=== PATIENT | female | born 1930 | race Caucasian/White ===

== ENCOUNTER 2018-12-25 17:37 | Inpatient (IN) | payer MEDICARE ==
[~2018-12-25] VITALS: Ht 165.1 cm; Wt 85.9 kg
--- NOTE | 2018-12-25 18:08 | PHYS DOC ---
Adult General Chief Complaint Chief Complaint: ABNORMAL LABS HPI HPI Patient is a 88-year-old female presents with no complaints. She was sent in by her primary care team because of abnormal labs to include a low bicarbonate and an elevated BUN compared with her usual baseline. She denies any chest pain, difficulty breathing, fever, nausea, vomiting, or diarrhea. No change in her strength or energy levels. The testing was performed prior to an upcoming procedure.[] Review of Systems Review of Systems Constitutional: Denies fever or chills [] Eyes: Denies change in visual acuity, redness, or eye pain [] HENT: Denies nasal congestion or sore throat [] Respiratory: Denies cough or shortness of breath [] Cardiovascular: No chest pain or palpitations[] GI: Denies abdominal pain, nausea, vomiting, bloody stools or diarrhea [] : Denies dysuria or hematuria [] Musculoskeletal: Denies back pain or joint pain [] Integument: Denies rash or skin lesions [] Neurologic: Denies headache, focal weakness or sensory changes [] Endocrine: Denies polyuria or polydipsia [] All other systems were reviewed and found to be within normal limits, except as documented in this note. Allergies Allergies Allergies Coded Allergies Type Severity Reaction Last Updated Verified No Known Drug Allergies 12/25/18 No Physical Exam Physical Exam Constitutional: Well developed, well nourished, no acute distress, non-toxic appearance. [] HENT: Normocephalic, atraumatic, bilateral external ears normal, oropharynx moist, no oral exudates, nose normal. [] Eyes: PERRLA, EOMI, conjunctiva normal, no discharge. [] Neck: Normal range of motion, no tenderness, supple, no stridor. [] Cardiovascular:Heart rate regular rhythm, no murmur [] Lungs & Thorax: Bilateral breath sounds clear to auscultation [] Abdomen: Bowel sounds normal, soft, no tenderness, no masses, no pulsatile masses. [] Skin: Warm, dry, no erythema, no rash. [] Back: No tenderness, no CVA tenderness. [] Extremities: No tenderness, no cyanosis, no clubbing, ROM intact, no edema. [] Neurologic: Alert and oriented X 3, normal motor function, normal sensory function, no focal deficits noted. [] Psychologic: Affect normal, judgement normal, mood normal. [] EKG EKG [] Radiology/Procedures Radiology/Procedures [] Course & Med Decision Making Course & Med Decision Making Pertinent Labs and Imaging studies reviewed. (See chart for details) [] Dragon Disclaimer Dragon Disclaimer This electronic medical record was generated, in whole or in part, using a voice recognition dictation system. Departure Departure: Disposition: 01 HOME/RESIDENCE PRIOR TO ADM Condition: STABLE Referrals: CAROLINA PETE MD (PCP) MARIA TERESA GATICA DO Dec 25, 2018 18:08
[2018-12-25 18:42] LABS: BASO % 1 % (0-3); EOS # 0.2 x10^3/uL (0.0-0.7); EOS % 3 % (0-3); HEMATOCRIT 38.3 % (36.0-47.0); HEMOGLOBIN 12.7 g/dL (12.0-15.5); LYMPH # 1.7 x10^3/uL (1.0-4.8); LYMPH % 25 % (24-48); MEAN CORPUSCULAR HEMOGLOBIN 30 pg (25-35); MEAN CORPUSCULAR HGB CONC 33 g/dL (31-37); MEAN CORPUSCULAR VOLUME 91 fL (79-100); MONO # 0.7 x10^3/uL (0.0-1.1); MONO % 9 % (0-9); NEUT # 4.4 x10^3uL (1.8-7.7); NEUT % 63 % (31-73); PLATELET COUNT 257 x10^3/uL (140-400); RED CELL DISTRIBUTION WIDTH 14.4 % (11.5-14.5)
[2018-12-25 18:57] LABS: ALBUMIN 3.3 g/dL (3.4-5.0); ALBUMIN/GLOBULIN RATIO 0.8 (1.0-1.7); CALCIUM 8.7 mg/dL (8.5-10.1); CREATININE 2.4 mg/dL (0.6-1.0); GFR 19.1; MAGNESIUM 2.3 mg/dL (1.8-2.4); POTASSIUM 5.3 mmol/L (3.5-5.1); TOTAL BILIRUBIN 0.2 mg/dL (0.2-1.0); TOTAL PROTEIN 7.6 g/dL (6.4-8.2)
[2018-12-25 18:59] LABS: BILIRUBIN,URINE NEG (NEG); CLARITY,URINE CLOUDY; COLOR,URINE YELLOW; GLUCOSE,URINE NEG (NEG)
[2018-12-25 19:00] LABS: BACTERIA,URINE MOD /HPF (0-FEW); GRANULAR CASTS,URINE OCC /HPF; HYALINE CASTS, URINE OCC /HPF; NITRITE,URINE NEG (NEG); RBC,URINE TNTC /HPF (0-2); SQUAMOUS EPITHELIAL CELL,UR FEW /LPF; UROBILINOGEN,URINE 0.2 mg/dL (0.2 mg/dL); WBC,URINE TNTC /HPF (0-4)
[2018-12-25] MEDS ORDERED: cefTRIAXone SODIUM 1 GM VIAL ONE (19:06)
[2018-12-25] MEDS ORDERED: IV NORMAL SALINE 50ML 50 ML ONE (19:06)
[2018-12-25] MEDS ORDERED: IV NORMAL SALINE 500ML 1,000 ML IV ONE (19:15)
[2018-12-25] MEDS ORDERED: ONDANSETRON PF 4 MG/2 ML VIAL. IV PRN (19:15)
[2018-12-25] MEDS: ACETAMINOPHEN 325 MG TABLET PO PRN (21:28)
[2018-12-25 21:40] VITALS: BP 155/74
[2018-12-25] MEDS: IV NORMAL SALINE 1,000ML 1,000 ML IV SCH (22:45)
[2018-12-26] MEDS ORDERED: TRAM50TA PO (02:15)
[2018-12-26] MEDS ORDERED: LORA10TA3 PO (02:15)
[2018-12-26] MEDS ORDERED: ASCO500C PO (02:15)
[2018-12-26] MEDS ORDERED: MULT-650 PO (02:15)
[2018-12-26] MEDS ORDERED: LEVO88TA4 PO (02:15)
[2018-12-26] MEDS: ACETAMINOPHEN 325 MG TABLET PO PRN ×2 (02:21→09:34)
[2018-12-26] MEDS ORDERED: CALC400T5 PO (02:47)
[2018-12-26] MEDS ORDERED: LACT330L PO (02:47)
[2018-12-26] MEDS ORDERED: MENT7.6L2 PO (02:47)
[2018-12-26] MEDS ORDERED: POLY17PO5 PO (02:47)
[2018-12-26] MEDS ORDERED: DIPH28.33 TP (02:47)
[2018-12-26] MEDS: LEVOTHYROXINE 88 MCG TABLET PO SCH (06:06)
[2018-12-26 06:21] LABS: BASO % 0 % (0-3); EOS # 0.1 x10^3/uL (0.0-0.7); EOS % 2 % (0-3); HEMATOCRIT 36.1 % (36.0-47.0); HEMOGLOBIN 11.9 g/dL (12.0-15.5); LYMPH # 1.9 x10^3/uL (1.0-4.8); LYMPH % 28 % (24-48); MEAN CORPUSCULAR HEMOGLOBIN 30 pg (25-35); MEAN CORPUSCULAR HGB CONC 33 g/dL (31-37); MEAN CORPUSCULAR VOLUME 91 fL (79-100); MONO # 0.6 x10^3/uL (0.0-1.1); MONO % 8 % (0-9); NEUT # 4.2 x10^3uL (1.8-7.7); NEUT % 62 % (31-73); PLATELET COUNT 245 x10^3/uL (140-400); RED BLOOD COUNT 3.97 x10^6/uL (3.50-5.40); WHITE BLOOD COUNT 6.9 x10^3/uL (4.0-11.0)
[2018-12-26 06:24] VITALS: BP 123/67
[2018-12-26 06:26] LABS: CALCIUM 8.5 mg/dL (8.5-10.1); CREATININE 2.3 mg/dL (0.6-1.0); POTASSIUM 5.2 mmol/L (3.5-5.1)
[2018-12-26] MEDS ORDERED: LACTOSE REDUCED FOOD PO SCH (07:30)
[2018-12-26] MEDS ORDERED: CALCIUM CARBONATE 500 MG TAB.CHEW PO PRN (07:45)
[2018-12-26] MEDS ORDERED: diphenhydrAMINE/ZINC 2%/0.1% 28GM TUBE. TP PRN (07:45)
[2018-12-26] MEDS ORDERED: MENTHOL PO SCH (08:00)
[2018-12-26] MEDS: IV NORMAL SALINE 1,000ML 1,000 ML IV SCH ×2 (08:09→11:10)
[2018-12-26] MEDS: ASCORBIC ACID 500 MG TABLET PO SCH (08:11)
[2018-12-26] MEDS: MULTIVITAMIN with MINERAL TABLET. PO SCH (08:12)
[2018-12-26] MEDS: POLYETHYLENE GLYCOL 3350 17 GM PACKET. PO SCH (08:12)
[2018-12-26] MEDS: CETIRIZINE HCL 10 MG TABLET PO SCH (08:12)
[2018-12-26] MEDS: NYSTATIN TOPICAL POWDER 15GM BOTTLE. TP SCH ×2 (10:00→21:00)
[2018-12-26 10:28] VITALS: BP 131/69
[2018-12-26] MEDS ORDERED: IOHEXOL 240 MG/ML 50ML VIAL. ONE (10:55)
--- NOTE | 2018-12-26 11:08 | HP ---
ADMIT DATE: 12/25/2018 HISTORY OF PRESENT ILLNESS: The patient is an 88-year-old female patient, a resident at [facility], who apparently has had lab work done ahead of her scheduled visit to her collar separator and that apparently showed that her BUN has dramatically risen from 51 on 09/10/2018 up to 83, although her creatinine actually is trending down. In fact, her creatinine was 2.9 on 07/2018 down to 2.7 on 08/11/2018 and as of yesterday, her creatinine down to 2.2. She was also found to be markedly acidotic. Her bicarbonate has been trending down. In August, it was 23 micromole and now it is only 9.7. Also mildly hyperkalemic. She apparently follows with one of the collar separator, however, she is not interested in pursuing hemodialysis. The patient is very extremely demented, does not really give any useful information. She is mostly wheelchair bound. She transfers with assistance from bed to wheelchair and vice versa. She is able to wheel herself around, but is unable to walk. PAST MEDICAL HISTORY: Significant for chronic kidney disease. She is also known to have hypothyroidism and generalized osteoarthritis. PAST SURGICAL HISTORY: Significant for bilateral cataract extraction and total abdominal hysterectomy, bilateral salpingo-oophorectomy. ALLERGIES: She has no known drug allergies. MEDICATIONS: She is currently on following medications: She is on loratadine 10 mg once a day, tramadol 50 mg every 12 hours and lactose-reduced food, Ensure Max protein 330 mL p.o. daily. She is on menthol 7.6 mg lozenges, cough drops every 2 hours as needed, calcium carbonate for Tums Ultra 400 mg every 4 hours, polyethylene glycol 17 grams daily, levothyroxine sodium 88 mcg once a day, diphenhydramine/zinc acetate for itch stopping cream applied topically as needed, ascorbic acid 500 mg once a day, multivitamin with mineral for Centrum Silver 1 tablet once a day. FAMILY HISTORY: Noncontributory. SOCIAL HISTORY: She is , currently residing at [facility] in [place], has been there since April 2018. She is , has 2 sons and 3 daughters. She is an ex-smoker, quit years ago. She does not drink alcohol or use any recreational drugs. She is apparently mostly bedbound, wheelchair bound. She managed to transfer with assistance. PHYSICAL EXAMINATION: GENERAL: On arrival to the Emergency Room, she looked well and was clearly in no apparent respiratory distress, pale. No jaundice, cyanosis or thyromegaly. No jugular venous distention. No limb edema. VITAL SIGNS: Her heart rate was 90, blood pressure 156/53, temperature was 98, respiratory rate was 20, and oxygen saturation was 97% on room air. HEAD, EYES, EARS, NOSE AND THROAT: Showed normocephalic, atraumatic. NECK: Supple. HEART: Showed normal first and second heart sounds. No gallop or murmur. CHEST: Clear to auscultation. No crepitation or rhonchi. ABDOMEN: Distended, soft, nontender. NEUROLOGIC: She is apparently demented, with no obvious lateralizing sign. She apparently has some form of retinal hemorrhage for which she sees Dr. Doll, the principal archaeologist and get some injection; however, all her other cranial nerves are intact. EXTREMITIES: She moves extremities without difficulty, although she is mostly bed bound, wheelchair bound. According to her son, she has severe osteoarthritis and recurrent dislocation of the left hip if my understanding is right and she mostly sleeps in a recliner. LABORATORY DATA: Her lab work done at the [facility] showed a serum sodium 135, potassium 5.3, chloride 109, bicarbonate 10, anion gap of 22, albumin was 3.8, BUN 83, calcium was 9, creatinine was 2.2, estimated GFR was 21 mL per minute. Her glucose was 95 and phosphorus was 2.7. Her hematocrit was 36.9. On arrival to the Emergency Room, her white cell count was 7000, hemoglobin 12.7, hematocrit 38, MCV 91, and platelet count of 257. Her serum sodium was 139, potassium 5.3, chloride 107, bicarbonate 18, anion gap of 14, BUN of 83, creatinine 2.4, estimated GFR was 19 mL per minute. Her glucose 115, lactic acid was 1.2, calcium was 8.7, magnesium was 2.3. Total bilirubin, AST, ALT, alkaline phosphatase were normal. Her total protein was 7.6, albumin was 3.3. Urinalysis showed the urine was yellow, cloudy with a pH of 5, specific gravity of 1.020. Small amount of protein. The urine was negative for glucose, ketones, large amount of blood. There was moderate amount of leukocyte esterase, too numerous to count rbc's, too numerous to count wbc's and moderate amount of bacteria. ASSESSMENT AND PLAN: The patient was admitted with acute on chronic kidney injury as well as urinary tract infection, mild hyperkalemia and metabolic acidosis. She was started on IV fluid, in the form of normal saline at 125 mL per minute, was continued on all her other medications. She is not on any nephrotoxic medication and therefore we have continued all her medications that are basically safe to continue. She was started on ceftriaxone 1 g IV daily for her urinary tract infection. KOMAL NERI MD DR: JUAN JOSE/tisha JOB#: [id number] / [id number]
[2018-12-26] MEDS: SODIUM BICARBONATE IVF 150 MEQ in IV DEXTROSE 5% 1,000 ML IV SCH (11:27)
--- NOTE | 2018-12-26 11:42 | PN ---
DATE: 12/26/2018 SUBJECTIVE: The patient was admitted yesterday for abnormal lab work including mild hyperkalemia, metabolic acidosis and disproportionately high BUN with creatinine indicating probably dehydration versus high protein diet. She is not on any diuretics, but she is on high protein diet according to her son. She was also found to have UTI and was admitted, started on IV fluid in the form of normal saline as well as IV ceftriaxone. PHYSICAL EXAMINATION: When I saw her this morning, she was sitting comfortably in her chair, in no apparent respiratory distress, pale, no jaundice, cyanosis or thyromegaly. No jugular venous distention. No lower limb edema. VITAL SIGNS: Her heart rate this morning was 69, blood pressure was 123/67, temperature was 97, respiratory rate was 20, and oxygen saturation was 99%. HEAD, EYES, EARS, NOSE AND THROAT: Showed normocephalic, atraumatic. NECK: Supple. HEART: Showed normal first and second heart sounds. No gallop, rub or murmur. CHEST: Clear to auscultation. No crepitation or rhonchi. ABDOMEN: Distended, soft, nontender. No guarding or rigidity. No organomegaly. All hernial orifice intact. Bowel sounds normal. NEUROLOGIC: She was demented, but without any obvious lateralizing sign. All her cranial nerves are intact. She moves extremities without difficulty, though she is mostly bedbound, chair bound. Her intake over the last 24 hours was 1500, output was 750. LABORATORY DATA: Her lab work this morning showed a white cell count 6900, hemoglobin 11.9, hematocrit 36, MCV 91, and platelet count of 245,000. Her serum sodium was 141, potassium 5.2, chloride 110, bicarbonate slightly up at 19, anion gap is down to 12, BUN is down to 77, creatinine 2.3, estimated GFR was 20 mL per minute. Her glucose was 92, calcium was 8.5. ASSESSMENT: Prerenal azotemia, mild hyperkalemia and severe metabolic acidosis, all improving. PLAN: My plan is to change IV fluid to D5W with 3 amps of normal saline, sodium bicarbonate. I will arrange for her to have also CT scan of the abdomen and pelvis with oral contrast only. We will monitor her lab work and make sure that there is no evidence of obstruction and treat her urinary tract infection. KOMAL NERI MD DR: Mariajose JOB#: [id number] / [id number]
[2018-12-26 15:36] VITALS: BP 132/55
--- NOTE | 2018-12-26 15:59 | RAD ---
CT scan of the abdomen and pelvis with oral contrast only 12/26/2018 CLINICAL HISTORY: Severe constipation. TECHNIQUE: After the oral administration of contrast only, contiguous, 3 mm axial sections were obtained through the abdomen and pelvis. Findings: Images through the lung bases demonstrate minimal dependent subsegmental atelectasis bilaterally. The liver, spleen, pancreas and adrenal glands are within normal limits. Nonobstructing calculi are seen involving both kidneys. These measure 6 mm to 9 mm in size. Extensive atherosclerotic calcification of the abdominal aorta and its branches is noted. The abdominal aorta tapers normally. Probable gallstones are seen within the gallbladder. No free fluid or free air is seen within the abdomen. There is no evidence of bowel obstruction. A moderate amount of stool is seen throughout the colon. Multiple diverticula are seen involving the sigmoid colon. No inflammatory changes are seen in the adjacent fat. Images through the pelvis demonstrate the urinary bladder distended with urine. Calcifications are seen within the pelvis consistent with phleboliths. No free fluid is seen. A moderate amount of stool is seen within the rectum. There is a moderate rectocele. Mild S-shaped curvature of the thoracolumbar spine is noted. Degenerative changes are seen involving the lower thoracic and throughout the lumbar spine along with both hips. IMPRESSION: A moderate amount of stool is seen throughout the colon and rectum without evidence of bowel obstruction. No acute abnormality is seen. Electronically signed by: Eulogio Brooks MD (12/26/2018 3:56 PM) [id number]
[2018-12-26] MEDS ORDERED: VITS A & D/LANOLIN TOPICAL OINTMENT 42GM TUBE. TP PRN (17:30)
[2018-12-26 19:06] VITALS: BP 147/72
[2018-12-26] MEDS: traMADol 50 MG TABLET PO PRN (19:28)
[2018-12-26 23:00] VITALS: BP 135/72
[2018-12-27] MEDS: SODIUM BICARBONATE IVF 150 MEQ in IV DEXTROSE 5% 1,000 ML IV SCH (04:32)
[2018-12-27 05:26] VITALS: BP 127/53
[2018-12-27] MEDS: LEVOTHYROXINE 88 MCG TABLET PO SCH (05:34)
[2018-12-27 06:13] LABS: HEMOGLOBIN 11.7 g/dL (12.0-15.5); RED BLOOD COUNT 4.01 x10^6/uL (3.50-5.40); RED CELL DISTRIBUTION WIDTH 13.9 % (11.5-14.5)
[2018-12-27 06:21] LABS: ALBUMIN/GLOBULIN RATIO 0.8 (1.0-1.7); CALCIUM 8.3 mg/dL (8.5-10.1); CREATININE 2.1 mg/dL (0.6-1.0); GFR 22.2; POTASSIUM 4.7 mmol/L (3.5-5.1); TOTAL BILIRUBIN 0.2 mg/dL (0.2-1.0); TOTAL PROTEIN 6.7 g/dL (6.4-8.2)
[2018-12-27] MEDS: POLYETHYLENE GLYCOL 3350 17 GM PACKET. PO SCH (09:02)
[2018-12-27] MEDS: MULTIVITAMIN with MINERAL TABLET. PO SCH (09:02)
[2018-12-27] MEDS: ASCORBIC ACID 500 MG TABLET PO SCH (09:02)
[2018-12-27] MEDS: LACTOBACILLUS RHAMNOSUS GG 1 CAPSULE. PO SCH ×2 (09:02→21:40)
[2018-12-27] MEDS: CETIRIZINE HCL 10 MG TABLET PO SCH (09:02)
[2018-12-27] MEDS: NYSTATIN TOPICAL POWDER 15GM BOTTLE. TP SCH ×2 (09:02→21:00)
[2018-12-27 11:00] VITALS: BP 155/64
[2018-12-27] MEDS ORDERED: MAGNESIUM HYDROXIDE 2,400 MG/30 ML ORAL.SUSP. PO PRN (11:15)
[2018-12-27] MEDS: SODIUM BICARBONATE 650 MG TABLET PO SCH ×2 (14:00→21:41)
[2018-12-27 15:00] VITALS: BP 134/71
[2018-12-27 19:00] VITALS: BP 146/70
[2018-12-27] MEDS: traMADol 50 MG TABLET PO PRN (21:40)
[2018-12-27] MEDS: DOCUSATE SODIUM 100 MG CAPSULE PO SCH (21:40)
--- NOTE | 2018-12-27 22:59 | PN ---
DATE: 12/27/2018 SUBJECTIVE: The patient is resting slightly propped up in her recliner, in no apparent distress. She is sleepy, but arousable. On questioning her, she is feeling tired and fatigued; however, she denied any chest pain or shortness of breath. Her lab work showed that her creatinine much improved, potassium is down to 4.7 and her anion gap is down to 12. Her CT scan showed no evidence of obstruction, but did show severe constipation for which I started her on MiraLax and Colace. PHYSICAL EXAMINATION: GENERAL: When I examined her, she was pale. No jaundice, cyanosis, lymphadenopathy or thyromegaly. VITAL SIGNS: Her heart rate was 77, blood pressure 127/53, temperature was 97.3, respiratory rate was 16 and oxygen saturation was 95%. HEAD, EYES, EARS, NOSE AND THROAT: Showed normocephalic, atraumatic. NECK: Supple. HEART: Showed normal first and second heart sounds. No gallop or murmur. CHEST: Clear to auscultation. No crepitation or rhonchi. ABDOMEN: Distended, soft, nontender. NEUROLOGIC: She is sleepy, but arousable. All cranial nerves intact. She moves extremities without difficulty, although she is mostly bedbound, chair bound. Her intake was 1500, output was 750. LABORATORY DATA: As of this morning, her white cell count was 6000, hemoglobin 11.7, hematocrit 36, MCV 90 and platelet count 242,000. Her serum sodium 142, potassium 4.7, chloride 108, bicarbonate 24, anion gap of 10, BUN 59, creatinine 2.1. Estimated GFR was 122 mL per minute. Her glucose 102, calcium was 8.3. Total bilirubin, AST, ALT, alkaline phosphatase were normal. Total protein was 6.7, albumin 3. Urinalysis essentially showed that she has too numerous to count wbc's, large amount of leukocyte esterase and moderate amount of bacteria. So far, her urine culture and blood cultures are still pending. ASSESSMENT: 1. Acute on chronic kidney injury, improving. 2. Hyperkalemia, resolved. 3. Metabolic acidosis, resolved. 4. Urinary tract infection for which she is on Rocephin. 5. Constipation for which we started her on Colace and MiraLax. PLAN: My plan is to check also her thyroid function to make sure that she is not hypothyroid and we will discontinue her IV fluids, start her perhaps on sodium bicarbonate by mouth and hopefully discharge her back to [facility]. KOMAL NERI MD DR: JUAN JOSE/tisha JOB#: [id number] / [id number]
[2018-12-27 23:46] VITALS: BP 136/65
[2018-12-28] MEDS: LEVOTHYROXINE 88 MCG TABLET PO SCH (06:00)
[2018-12-28 06:42] LABS: CALCIUM 8.5 mg/dL (8.5-10.1); CREATININE 2.1 mg/dL (0.6-1.0); GFR 22.2; POTASSIUM 4.6 mmol/L (3.5-5.1)
[2018-12-28 06:47] VITALS: BP 150/71
[2018-12-28] MEDS: POLYETHYLENE GLYCOL 3350 17 GM PACKET. PO SCH (08:52)
[2018-12-28] MEDS: SODIUM BICARBONATE 650 MG TABLET PO SCH ×3 (08:52→20:19)
[2018-12-28] MEDS: LACTOBACILLUS RHAMNOSUS GG 1 CAPSULE. PO SCH ×2 (08:52→20:17)
[2018-12-28] MEDS: MULTIVITAMIN with MINERAL TABLET. PO SCH (08:52)
[2018-12-28] MEDS: DOCUSATE SODIUM 100 MG CAPSULE PO SCH ×2 (08:52→20:17)
[2018-12-28] MEDS: ASCORBIC ACID 500 MG TABLET PO SCH (08:52)
[2018-12-28] MEDS: CETIRIZINE HCL 10 MG TABLET PO SCH (08:53)
[2018-12-28] MEDS: NYSTATIN TOPICAL POWDER 15GM BOTTLE. TP SCH ×2 (08:53→21:51)
[2018-12-28] MEDS ORDERED: POLYETHYLENE GLYCOL 3350 17 GM PACKET. PO SCH (09:00)
[2018-12-28 11:15] VITALS: BP 133/71
[2018-12-28] MEDS: LEVOTHYROXINE 100 MCG TABLET PO SCH (14:30)
[2018-12-28 17:55] VITALS: BP 154/70
--- NOTE | 2018-12-28 22:29 | PN ---
DATE: 12/28/2018 SUBJECTIVE: The patient is sitting slightly propped up in her recliner, eating her lunch comfortably, in no apparent distress. According to nursing staff, she has so far 2 bowel movements. Her lab work remained stable; however, her TSH was high at 11.048. Her urine culture has grown more than 100,000 colony forming units per mL of gram-negative rods, the result of which is still pending at the time of this dictation. PHYSICAL EXAMINATION: GENERAL: When I examined her this afternoon, she was resting, propped up in her recliner. She is definitely more awake, alert. There is no pallor, jaundice, cyanosis or thyromegaly. No jugular venous distension. No limb edema. VITAL SIGNS: Her heart rate was 78, blood pressure was 133/71, temperature was 97.4, respiratory rate 20, and oxygen saturation was 96%. The rest of clinical examination is stable. Her intake over the last 24 hours was 2100, output was 850. LABORATORY DATA: As of this morning, her serum sodium 143, potassium 4.6, chloride 109, bicarbonate 25, anion gap of 9, BUN 51, creatinine was 2.1, estimated GFR was 22 mL per minute. Her glucose was 90, calcium was 8.5. TSH was 11. Her white cell count was 6000, hemoglobin 12, hematocrit 36, MCV 90 and platelet count 242,000. ASSESSMENT: 1. Acute on chronic kidney injury, improving. 2. Hyperkalemia, resolved. 3. Metabolic acidosis, resolved. 4. Urinary tract infection with growth of more than 100,000 colony forming units per mL of gram-negative rods on Rocephin. 5. Constipation, resolved. 6. Hypothyroidism for which I increased her Synthroid 100 mcg. PLAN: My plan is to continue with IV Rocephin. Continue with sodium bicarbonate and tomorrow once she has the culture and sensitivities, she can be switched to oral antibiotic and can be discharged back to [facility]. KOMAL NERI MD DR: JUAN JOSE/tisha JOB#: [id number] / [id number]
[2018-12-28 23:00] VITALS: BP 155/71
[2018-12-29 05:50] VITALS: BP 172/65
[2018-12-29] MEDS: LEVOTHYROXINE 100 MCG TABLET PO SCH (05:59)
[2018-12-29] MEDS: ASCORBIC ACID 500 MG TABLET PO SCH (08:18)
[2018-12-29] MEDS: LACTOBACILLUS RHAMNOSUS GG 1 CAPSULE. PO SCH (08:18)
[2018-12-29] MEDS: CETIRIZINE HCL 10 MG TABLET PO SCH (08:18)
[2018-12-29] MEDS: MULTIVITAMIN with MINERAL TABLET. PO SCH (08:18)
[2018-12-29] MEDS: DOCUSATE SODIUM 100 MG CAPSULE PO SCH (08:18)
[2018-12-29] MEDS: POLYETHYLENE GLYCOL 3350 17 GM PACKET. PO SCH (08:18)
[2018-12-29] MEDS: NYSTATIN TOPICAL POWDER 15GM BOTTLE. TP SCH (08:20)
[2018-12-29] MEDS: SODIUM BICARBONATE 650 MG TABLET PO SCH (08:20)
[2018-12-29 11:04] VITALS: BP 159/64
[2018-12-29 11:54] LABS: BASO % 0 % (0-3); EOS # 0.1 x10^3/uL (0.0-0.7); EOS % 2 % (0-3); HEMATOCRIT 34.7 % (36.0-47.0); HEMOGLOBIN 11.7 g/dL (12.0-15.5); LYMPH # 1.4 x10^3/uL (1.0-4.8); LYMPH % 23 % (24-48); MEAN CORPUSCULAR HEMOGLOBIN 31 pg (25-35); MEAN CORPUSCULAR HGB CONC 34 g/dL (31-37); MEAN CORPUSCULAR VOLUME 90 fL (79-100); MONO # 0.5 x10^3/uL (0.0-1.1); MONO % 8 % (0-9); NEUT # 4.1 x10^3uL (1.8-7.7); NEUT % 67 % (31-73); PLATELET COUNT 225 x10^3/uL (140-400); RED BLOOD COUNT 3.84 x10^6/uL (3.50-5.40); RED CELL DISTRIBUTION WIDTH 13.8 % (11.5-14.5); WHITE BLOOD COUNT 6.2 x10^3/uL (4.0-11.0)
[2018-12-29 12:03] LABS: ALBUMIN 2.8 g/dL (3.4-5.0); ALBUMIN/GLOBULIN RATIO 0.7 (1.0-1.7); CALCIUM 8.9 mg/dL (8.5-10.1); CREATININE 2.1 mg/dL (0.6-1.0); GFR 22.2; POTASSIUM 4.7 mmol/L (3.5-5.1); TOTAL BILIRUBIN 0.2 mg/dL (0.2-1.0); TOTAL PROTEIN 6.6 g/dL (6.4-8.2)
[2018-12-29] MEDS ORDERED: LEVO100T5 PO (12:14)
[2018-12-29] MEDS ORDERED: CEFD300C PO (12:14)
[2018-12-29] MEDS ORDERED: SODI650T PO (12:14)
--- NOTE | 2018-12-29 12:30 | DS ---
DATE OF DISCHARGE: DISCHARGE SUMMARY HOSPITAL COURSE: The patient is an 88-year-old female patient, a resident at [facility], who was admitted as her lab work were abnormal. In fact, she was found to have acute on chronic kidney injury, hyperkalemia, marked metabolic acidosis. She was also found to have urinary tract infection. We did start her on IV fluid and her lab work has improved dramatically. Her potassium came down nicely from 5.3-4.6. Her anion gap came down from 14 to 9 and her BUN came down from 84-51, creatinine from 2.3 to 2.1. Her urine culture has grown more than 100,000 colony forming units per mL of gram-negative rods identified as Klebsiella pneumoniae, sensitive to all the cephalosporins. She has received 3 days of IV ceftriaxone and was discharged on cefdinir 300 mg once a day. Her TSH was found to be high, so we increased her levothyroxine 200 mcg. She remained hemodynamically stable, afebrile. A decision was made to discharge her back home to [facility] with home health care. PHYSICAL EXAMINATION: GENERAL: When I examined her today, she looked well and was clearly in no apparent respiratory distress. She was definitely more awake, and alert, responding appropriately. She was somewhat pale, but no jaundice, cyanosis or thyromegaly. No jugular venous distention. No limb edema. VITAL SIGNS: Her heart rate was 89, blood pressure 159/64, temperature was 97.7, respiratory rate 20, and oxygen saturation was 95%. HEAD, EYES, EARS, NOSE AND THROAT: Normocephalic, atraumatic. NECK: Supple. HEART: Showed normal first and second heart sounds with no gallop, rub or murmur. CHEST: Clear to auscultation. No crepitation or rhonchi. ABDOMEN: Distended, soft, nontender. No guarding or rigidity. No organomegaly. All hernial orifices intact. Bowel sounds normal. NEUROLOGIC: She was demented. All her cranial nerves intact. She moves upper extremities to much good extent than lower extremities, mostly bedbound, chair bound. Her intake over the last 24 hours was 1200, no output was recorded. LABORATORY DATA: Showed a white cell count 6200, hemoglobin 11.7, hematocrit 34, MCV 90 and platelet count 225,000. Her chemistry showed a serum sodium 143, potassium 4.6, chloride 109, bicarbonate 25, anion gap of 9, BUN 51, creatinine 2.1, estimated GFR was 22 mL per minute. Her glucose was 90, calcium was 8.5. Her TSH was 11.048. DISCHARGE MEDICATIONS: She was discharged back to continue on ascorbic acid 500 mg once a day, calcium carbonate 500 mg every 4 hours as needed, diphenhydramine/zinc acetate applied topically twice around her nose daily, Lactose reduced food, loratadine 10 mg once a day, menthol cough drops 1 tablet every 2 hours, multivitamin 1 tablet once a day, polyethylene glycol 17 grams daily, tramadol 50 mg every 12 hours. She was discharged on cefdinir 300 mg once a day. She was discharged also on sodium bicarbonate 650 mg 3 times a day and we have increased her levothyroxine 200 mcg once a day. FINAL DISCHARGE DIAGNOSES: 1. [id number] kidney injury, resolved. 2. Hyperkalemia, resolved. 3. Metabolic acidosis, resolved. 4. Urinary tract infection with growth of Klebsiella pneumoniae, resolved. 5. Constipation, resolved. KOMAL NERI MD DR: JUAN JOSE/tisha JOB#: [id number] / [id number]
== END 2018-12-29 12:55 | disposition home or self-care (01) | DRG 682 ==
LOC: ER 17:37 → 1 SOUTH 19:10
PROVIDERS: ADMIT Internal Medicine; ATTEND Internal Medicine
DX: N17.0 Acute kidney failure with tubular necrosis (principal); R53.2 Functional quadriplegia; E87.2 Acidosis; N39.0 Urinary tract infection, site not specified; E87.5 Hyperkalemia; N18.9 Chronic kidney disease, unspecified; E03.9 Hypothyroidism, unspecified; M15.9 Polyosteoarthritis, unspecified; B96.1 Klebsiella pneumoniae [K. pneumoniae] as the cause of diseases classified elsewhere; F03.90 Unspecified dementia, unspecified severity, without behavioral disturbance, psychotic disturbance, mood disturbance, and anxiety; K59.00 Constipation, unspecified; Z99.3 Dependence on wheelchair; Z98.42 Cataract extraction status, left eye; Z98.41 Cataract extraction status, right eye; Z90.710 Acquired absence of both cervix and uterus; Z87.891 Personal history of nicotine dependence
CPT/HCPCS: 36415; 74176; 80048; 80053; 81001; 83605; 83735; 84443; 85025; 85027; 87040; 87086; 87186; 96365; J0696; J2405; J7040; 99285-25; J7030

== ENCOUNTER 2020-02-17 17:32 | Inpatient (IN) | payer MEDICARE ==
[~2020-02-17] VITALS: Ht 165.1 cm; Wt 75.9 kg
[~2020-02-17 17:32] MED LIST: ASCO500C PO; CALC400T5 PO; CEFD300C PO; DIPH28.33 TP; LACT330L PO; LEVO100T5 PO; LEVO88TA4 PO; LORA10TA3 PO; MENT7.6L2 PO; MULT-650 PO; POLY17PO5 PO; SODI650T PO; TRAM50TA PO
--- NOTE | 2020-02-17 17:40 | PHYS DOC ---
Past History Past Medical History: Anemia, Constipation, GERD, Hypothyroid, Renal Failure, Other Additional Past Medical Histor: ALZHEIMERS, PRESSURE ULCERS, OSTEOARTHRITIS OF LEFT HIP (ANGELES HERNANDEZ MD) Past Surgical History: Other Additional Past Surgical Histo: SURGICAL HX NOT SENT (ANGELES HERNANDEZ MD) Alcohol Use: None Drug Use: None (ANGELES HERNANDEZ MD) General Adult HPI: HPI: Patient is a 89-year-old female with Alzheimer's dementia coming from nursing facility for lethargy. Patient is normally GCS 14 as on her baseline mentally, but just is complaining of fatigue and weakness. Patient states she does not have any pain anywhere. Staff noted darker colored urine. Patient has a history of chronic renal insufficiency but is not a dialysis patient. No fevers or Covid exposures. Patient not able to answer if she is eating and drinking enough. Patient has stated she felt "dizzy" but is unable to elaborate on details of the symptoms. Patient is DPOA, she is a DNR (ANGELES HERNANDEZ MD) Review of Systems: Review of Systems: Negative other than HPI, limited by dementia (ANGELES HERNANDEZ MD) Allergies: Allergies: Allergies Coded Allergies Type Severity Reaction Last Updated Verified No Known Drug Allergies 12/25/18 No (ANGELES HERNANDEZ MD) Physical Exam: PE: Constitutional: Well developed, well nourished, no acute distress, non-toxic appearance. [] HENT: Normocephalic, atraumatic, bilateral external ears normal, oropharynx moist, no oral exudates, nose normal. [] Eyes: PERRLA, EOMI, conjunctiva normal, no discharge. [] Neck: Normal range of motion, no tenderness, supple, no stridor. [] Cardiovascular:Heart rate regular rhythm, no murmur [] Lungs & Thorax: Bilateral breath sounds clear to auscultation [] Abdomen: Bowel sounds normal, soft, no tenderness, no masses, no pulsatile masses. [] Skin: Warm, dry, no erythema, no rash. [] Decreased skin turgor Back: No tenderness, no CVA tenderness. [] Extremities: No tenderness, no cyanosis, no clubbing, ROM intact, no edema. [] Neurologic: Alert and oriented X 3, normal motor function, normal sensory function, no focal deficits noted. [] Psychologic: Affect normal, judgement normal, mood normal. [] (ANGELES HERNANDEZ MD) Current Patient Data: Labs: Laboratory Tests Test 02/17/20 17:35 02/17/20 18:00 02/17/20 18:29 Bedside Venous pH 7.33 (7.32-7.42) Bedside Venous pCO2 39 mmHg (41-51) Bedside Venous pO2 21 mmHg (20-40) Venous Blood HCO3 21 mmol/L (24-28) POC Venous O2 Saturation (Kristine) 32 % Bedside FiO2 21 White Blood Count 9.4 x10^3/uL (4.0-11.0) Red Blood Count 4.69 x10^6/uL (3.50-5.40) Hemoglobin 12.1 g/dL (12.0-15.5) Hematocrit 37.0 % (36.0-47.0) Mean Corpuscular Volume 79 fL (79-100) Mean Corpuscular Hemoglobin 26 pg (25-35) Mean Corpuscular Hemoglobin Concent 33 g/dL (31-37) Red Cell Distribution Width 14.4 % (11.5-14.5) Platelet Count 301 x10^3/uL (140-400) Neutrophils (%) (Auto) 74 % (31-73) Lymphocytes (%) (Auto) 14 % (24-48) Monocytes (%) (Auto) 10 % (0-9) Eosinophils (%) (Auto) 1 % (0-3) Basophils (%) (Auto) 0 % (0-3) Neutrophils # (Auto) 7.0 x10^3uL (1.8-7.7) Lymphocytes # (Auto) 1.3 x10^3/uL (1.0-4.8) Monocytes # (Auto) 1.0 x10^3/uL (0.0-1.1) Eosinophils # (Auto) 0.1 x10^3/uL (0.0-0.7) Basophils # (Auto) 0.0 x10^3/uL (0.0-0.2) Sodium Level 136 mmol/L (136-145) Potassium Level 3.7 mmol/L (3.5-5.1) Chloride Level 99 mmol/L (98-107) Carbon Dioxide Level 21 mmol/L (21-32) Anion Gap 16 (6-14) Blood Urea Nitrogen 99 mg/dL (7-20) Creatinine 3.9 mg/dL (0.6-1.0) Estimated GFR (Cockcroft-Gault) 10.9 BUN/Creatinine Ratio 25 (6-20) Glucose Level 114 mg/dL (70-99) Lactic Acid Level 1.3 mmol/L (0.4-2.0) Calcium Level 9.9 mg/dL (8.5-10.1) Phosphorus Level 4.9 mg/dL (2.6-4.7) Magnesium Level 2.7 mg/dL (1.8-2.4) Total Bilirubin 0.4 mg/dL (0.2-1.0) Aspartate Amino Transf (AST/SGOT) 15 U/L (15-37) Alanine Aminotransferase (ALT/SGPT) 15 U/L (14-59) Alkaline Phosphatase 128 U/L (46-116) Troponin I Quantitative < 0.017 ng/mL (0-0.055) AS-Lnq-Q-Type Natriuretic Peptide 734 pg/mL (0-449) Total Protein 8.2 g/dL (6.4-8.2) Albumin 3.4 g/dL (3.4-5.0) Albumin/Globulin Ratio 0.7 (1.0-1.7) Urine Collection Type U cath Urine Color Yellow Urine Clarity Turbid Urine pH 6.0 Urine Specific [place] 1.015 Urine Protein 100 mg/dl (NEG-TRACE) Urine Glucose (UA) Neg mg/dL (NEG) Urine Ketones (Stick) Neg mg/dL (NEG) Urine Blood Large (NEG) Urine Nitrite Neg (NEG) Urine Bilirubin Neg (NEG) Urine Urobilinogen Dipstick 0.2 mg/dL (0.2 mg/dL) Urine Leukocyte Esterase Large (NEG) Urine RBC 20-40 /HPF (0-2) Urine WBC >40 /HPF (0-4) Urine Bacteria Many /HPF (0-FEW) Vital Signs: Vital Signs Date Time Temp Pulse Resp B/P (MAP) Pulse Ox O2 Delivery O2 Flow Rate FiO2 02/17/20 21:40 98.2 92 20 100/54 (69) 98 Room Air 02/17/20 18:41 90 19 127/58 (81) 94 Room Air 02/17/20 17:41 81 19 112/56 (74) 95 Room Air 02/17/20 17:32 98.7 93 18 112/56 (74) 99 Room Air (SHARI FOWLER DO) EKG: EKG: [] (ANGELES HERNANDEZ MD) Radiology/Procedures: Radiology/Procedures: [] (ANGELES HERNANDEZ MD) Radiology/Procedures: EXAM: AP View of the chest DATE: 02/17/2020 5:45 PM INDICATION: Lethargy COMPARISON: No Prior FINDINGS: The heart is not enlarged. Mediastinal and hilar contours are normal. Background of interstitial prominence bilaterally with superimposed patchy opacities right upper lung a medial right lung base. No pleural effusion or pneumothorax. IMPRESSION: Perihilar interstitial opacities likely from prior chronic interstitial lung disease. Superimposed airspace opacities right upper lung and medial right lung base may represent superimposed consolidative process. Electronically signed by: Jignesh Mccann MD (02/17/2020 6:14 PM) [facility] (SHARI FOWLER DO) Heart Score: Risk Factors: Risk Factors: DM, Current or recent (<one month) smoker, HTN, HLP, family history of CAD, obesity. Risk Scores: Score 0 - 3: 2.5% MACE over next 6 weeks - Discharge Home Score 4 - 6: 20.3% MACE over next 6 weeks - Admit for Clinical Observation Score 7 - 10: 72.7% MACE over next 6 weeks - Early Invasive Strategies (ANGELES HERNANDEZ MD) HEART Score for Chest Pain: HEART Score for Chest Pain Response (Comments) Value History Slighlty/Non-Suspicious 0 ECG Normal 0 Age > 65 2 Risk Factors >3 Risk Factors or Hx CAD 2 Troponin < Normal Limit 0 Total 4 Course & Med Decision Making: Course & Med Decision Making Pending labs at shift change, care transition to Dr. Fowler [] (ANGELES HERNANDEZ MD) Course & Med Decision Making I assumed patient care after comprehensive signout from off going physician and reviewing patient's medical work-up in ER thus far I personally evaluated patient repeating certain aspects of history and physical exam. I also called patient's son who is designated power of immigration attorney and case was discussed at length. I discussed need for admission given acute on chronic kidney disease likely due to a combination of dehydration and concomitant UTI. Case discussed with on- call hospitalist to [facility] who accepted patient under his care Gentle IV fluid rehydration and 1 g IV Rocephin administered Patient son was updated on plan of care and amenable for admission. All questions and concerns addressed prior to ER transport to [facility] in stable condition (SHARI FOWLER DO) Selvin Disclaimer: Selvin Disclaimer: This electronic medical record was generated, in whole or in part, using a voice recognition dictation system. (ANGELES HERNANDEZ MD) Departure Departure: Impression: Primary Impression: Acute on chronic renal failure Additional Impressions: UTI (urinary tract infection) Electrolyte imbalance Disposition: ADMITTED INPT THIS HOSP Admitting Physician: Kenrick Mendoza (SHARI FOWLER DO) Condition: STABLE Referrals: CAROLINA PETE MD (PCP) ANGELES HERNANDEZ MD Feb 17, 2020 17:40 SHARI FOWLER DO Feb 17, 2020 19:27
--- NOTE | 2020-02-17 17:52 | EKG ---
[address] [address] Test Date: 2020-02-17 Test Time: 17:40:01 Pat Name: YENNI ORTEGA Department: Room: Gender: F [employer] Supervisor: JED : [id number] Requested By: ANGELES HERNANDEZ Order Number: [id number] Reading MD: Curtis Larikn Measurements Intervals [place] Rate: 95 P: -10 [place]: 134 QRS: 64 QRSD: 126 T: 37 QT: 388 QTc: 491 Interpretive Statements SINUS RHYTHM RIGHT BUNDLE BRANCH BLOCK Electronically Signed On 02-23-2020 14:52:23 BOARD CATCHER by Curtis Larkin
--- NOTE | 2020-02-17 18:17 | RAD ---
EXAM: AP View of the chest DATE: 02/17/2020 5:45 PM INDICATION: Lethargy COMPARISON: No Prior FINDINGS: The heart is not enlarged. Mediastinal and hilar contours are normal. Background of interstitial prominence bilaterally with superimposed patchy opacities right upper lung a medial right lung base. No pleural effusion or pneumothorax. IMPRESSION: Perihilar interstitial opacities likely from prior chronic interstitial lung disease. Superimposed ai rspace opacities right upper lung and medial right lung base may represent superimposed consolidative process. Electronically signed by: Jignesh Mccann MD (02/17/2020 6:14 PM) ANNELIESE
[2020-02-17 18:23] LABS: BASO % 0 % (0-3); EOS # 0.1 x10^3/uL (0.0-0.7); EOS % 1 % (0-3); HEMOGLOBIN 12.1 g/dL (12.0-15.5); LYMPH # 1.3 x10^3/uL (1.0-4.8); LYMPH % 14 % (24-48); MEAN CORPUSCULAR HEMOGLOBIN 26 pg (25-35); MEAN CORPUSCULAR HGB CONC 33 g/dL (31-37); MEAN CORPUSCULAR VOLUME 79 fL (79-100); MONO % 10 % (0-9); NEUT % 74 % (31-73); PLATELET COUNT 301 x10^3/uL (140-400); RED BLOOD COUNT 4.69 x10^6/uL (3.50-5.40); RED CELL DISTRIBUTION WIDTH 14.4 % (11.5-14.5); WHITE BLOOD COUNT 9.4 x10^3/uL (4.0-11.0)
[2020-02-17 18:31] LABS: CALCIUM 9.9 mg/dL (8.5-10.1); CREATININE 3.9 mg/dL (0.6-1.0); GFR 10.9; POTASSIUM 3.7 mmol/L (3.5-5.1)
[2020-02-17 18:46] LABS: ALBUMIN 3.4 g/dL (3.4-5.0); ALBUMIN/GLOBULIN RATIO 0.7 (1.0-1.7); MAGNESIUM 2.7 mg/dL (1.8-2.4); PHOSPHORUS 4.9 mg/dL (2.6-4.7); TOTAL BILIRUBIN 0.4 mg/dL (0.2-1.0); TOTAL PROTEIN 8.2 g/dL (6.4-8.2)
[2020-02-17 19:38] LABS: BILIRUBIN,URINE NEG (NEG); CLARITY,URINE TURBID; COLOR,URINE YELLOW; GLUCOSE,URINE NEG (NEG)
[2020-02-17 19:39] LABS: BACTERIA,URINE MANY /HPF (0-FEW); NITRITE,URINE NEG (NEG); RBC,URINE 20-40 /HPF (0-2); UROBILINOGEN,URINE 0.2 mg/dL (0.2 mg/dL); WBC,URINE >40 /HPF (0-4)
[2020-02-17] MEDS ORDERED: cefTRIAXone SODIUM 1 GM VIAL ONE (19:59)
[2020-02-17] MEDS ORDERED: IV NORMAL SALINE 50ML 50 ML ONE (19:59)
[2020-02-17] MEDS ORDERED: IV NORMAL SALINE 1,000ML 1,000 ML IV ONE (20:00)
[2020-02-17 21:40] VITALS: BP 100/54
[2020-02-18] MEDS ORDERED: OMEP20CA16 PO (02:23)
[2020-02-18] MEDS ORDERED: LORA-52 PO (02:23)
[2020-02-18] MEDS ORDERED: LACT1CAP19 PO (02:23)
[2020-02-18] MEDS ORDERED: ACET325T21 PO (02:23)
[2020-02-18] MEDS ORDERED: FURO-68 PO (02:23)
[2020-02-18] MEDS ORDERED: DOCU-109 PO (02:23)
[2020-02-18] MEDS ORDERED: HYDR25TA PO (02:23)
[2020-02-18] MEDS ORDERED: LEVO100T5 PO (02:23)
[2020-02-18] MEDS ORDERED: TRAM50TA PO (02:23)
[2020-02-18 05:22] VITALS: BP 128/79
[2020-02-18 06:53] LABS: CALCIUM 8.7 mg/dL (8.5-10.1); CREATININE 3.7 mg/dL (0.6-1.0); GFR 11.5; POTASSIUM 3.3 mmol/L (3.5-5.1)
[2020-02-18] MEDS: IV DEXTROSE 5 %-0.45 % NACL 1,000 ML IV SCH ×2 (07:40→18:05)
[2020-02-18 10:46] VITALS: BP 129/55
[2020-02-18] MEDS ORDERED: LACTOSE REDUCED FOOD PO SCH (13:15)
[2020-02-18] MEDS ORDERED: CALCIUM CARBONATE 500 MG TAB.CHEW PO PRN (13:45)
[2020-02-18] MEDS ORDERED: diphenhydrAMINE/ZINC 2%/0.1% 28GM TUBE. TP PRN (13:45)
--- NOTE | 2020-02-18 13:50 | HP ---
ADMIT DATE: 02/17/2020 HISTORY OF PRESENT ILLNESS: The patient is an 89-year-old female patient, a resident at [facility], who was brought to the Emergency Room with a complaint of fatigue and weakness. She states she does not have any pain anywhere, staff noted darker color urine and the patient has a history of chronic renal insufficiency, but is not on dialysis. The patient had no fever or COVID exposure. The patient is not able to answer if she is eating or drinking enough. I spoke with the nursing staff at the [facility] and stated that the patient basically has advanced dementia. She is a 2-person assist. They have already given 30-day notice to her son and they are unable to meet her needs, there are insisting to go to a long-term care facility. The patient was extensively investigated in the Emergency Room, has had lab work as well as imaging studies. Her lab work showed that her creatinine is high at 3.9 as well as BUN is 99. She was started on IV fluid and was admitted for further evaluation and treatment. PAST MEDICAL HISTORY: Significant for chronic kidney disease. She is also known to have hypothyroidism and generalized osteoarthritis. PAST SURGICAL HISTORY: Significant for bilateral cataract extraction, total abdominal hysterectomy, bilateral salpingo-oophorectomy. ALLERGIES: She has no known drug allergies. FAMILY HISTORY: Noncontributory. SOCIAL HISTORY: She is , currently residing at [facility], has been there since 04/2018. She has 2 sons and 3 daughters. She is an ex-smoker, quit years ago. She does not drink alcohol or use any recreational drugs. She is apparently mostly wheelchair bound. She managed to transfer with assistance before, but now she is a 2-person assist. MEDICATIONS: She is currently on loratadine 10 mg once a day, tramadol 50 mg twice a day. She is on Tylenol 650 mg every 4-6 hours, hydroxyzine 25 mg 3 times a day, Lactose-reduced food, Ensure Max protein 330 mL p.o. daily p.r.n. for weight loss. She is on furosemide 40 mg daily, menthol cough drops 1 tablet every 2 hours, calcium carbonate 400 mg every 4 hours as needed, sodium bicarbonate 650 mg 3 times a day. She is on Colace 100 mg twice a day, polyethylene glycol 17 grams daily, omeprazole 20 mg twice a day, lactobacillus rhamnosus for Culturelle 1 capsule p.o. daily, levothyroxine sodium 100 mcg once a day. She is on diphenhydramine/Benadryl itch stopping cream 1 application topically. She is on ascorbic acid 500 mg daily, multivitamin with mineral 1 tablet once a day. PHYSICAL EXAMINATION: GENERAL: On arrival to the Emergency Room, the patient looked well and was clearly in no apparent respiratory distress. No pallor, jaundice, cyanosis or thyromegaly. No jugular venous distention. No limb edema. VITAL SIGNS: Her heart rate was 93, blood pressure was 112/56, temperature was 98.7, respiratory rate was 18 and oxygen saturation was 99%. HEAD, EYES, EARS, NOSE AND THROAT: Normocephalic, atraumatic. NECK: Supple. HEART: Showed normal first and second heart sounds. No gallop, rub or murmur. CHEST: Clear to auscultation. No crepitation or rhonchi. ABDOMEN: Distended with mild diffuse tenderness. No guarding or rigidity. No organomegaly. All hernial orifices intact. Bowel sounds normal. NEUROLOGIC: She is demented without obvious lateralizing sign. All cranial nerves intact. She moves upper extremities to much good extent than lower extremities, mostly bedbound, chair bound. LABORATORY DATA: Her lab work on arrival showed a white cell count 9400, hemoglobin 12, hematocrit 37, MCV 79 and platelet count 301,000 with normal manual differential. Her chemistry showed a serum sodium 136, potassium 3.7, chloride 99, bicarbonate 21, anion gap of 16, BUN 99, creatinine 3.9, estimated GFR was 10.9 and glucose 114. Her lactic acid is 1.3, calcium was 9.9, phosphorus 4.9, magnesium was 2.7. Total bilirubin, AST, ALT, alkaline phosphatase slightly elevated. Total protein was 8.2, albumin was 3.4. Urinalysis showed the urine was cloudy, turbid with a pH of 6, specific gravity of 1.015, there was large amount of protein. The urine was negative for glucose, ketones, large amount of blood, negative for nitrite and leukocyte esterase. There was large amount of leukocyte esterase, 20-40 rbc's, more than 40 wbc's, and many bacteria. Her blood gases showed a pH of 7.33, pCO2 of 39, probably venous blood gases. ASSESSMENT AND PLAN: The patient was admitted with acute on chronic kidney injury. Her urine was sent for culture and sensitivity, the result of which is still pending at the time of this dictation. She was started on IV ceftriaxone and received IV fluids in the form of normal saline. Other medical problems include hypothyroidism, generalized osteoarthritis and advanced dementia. KOMAL NERI MD DR: JUAN JOSE/tisha JOB#: [id number] / [id number]
[2020-02-18] MEDS: SODIUM BICARBONATE 650 MG TABLET PO SCH ×2 (14:00→20:46)
[2020-02-18] MEDS: hydrOXYzine HCL 25 MG TABLET PO SCH ×2 (14:00→20:48)
[2020-02-18] MEDS ORDERED: BENZOCAINE/MENTHOL LOZNGE 18'S BOX. PO PRN (14:00)
[2020-02-18 15:21] VITALS: BP 112/61
--- NOTE | 2020-02-18 15:57 | RAD ---
EXAM: CT Abdomen and Pelvis without IV contrast INDICATION: Reason: worsening kidney functions to r/o obstruction or intraabdominal p / Spl. Instruct ions: / History: TECHNIQUE: Multi-detector row CT images were acquired from the lung bases through the abdomen and pel vis without the use of IV contrast. Sagittal and coronal images were acquired from the transaxial rhiannon a. All CT scans performed at this facility utilize dose optimization techniques as appropriate to the exam, including the following: Automated exposure control and adjustment of the mA and/or KV accordi ng to patient size (this includes techniques or standardized protocols for targeted exams where dose is indication/reason for exam). ORAL CONTRAST: None COMPARISON: 12/26/[address] without IV contrast. FINDINGS: The absence of IV contrast limits evaluation of soft tissue pathology. LOWER CHEST: No focal infiltrates in the lung bases. There is nodularity to both breasts that is bett er evaluated on mammography. LIVER: Unremarkable BILIARY SYSTEM: Gallbladder is unremarkable. Bile ducts are not dilated. PANCREAS: Unremarkable SPLEEN: Unremarkable ADRENALS: Unremarkable KIDNEYS & URETERS: A 6 mm distal left ureteral stone (image 105 of series 2) is associated with pers istent or recurrent left hydronephrosis. It appears the previously nonobstructing stone in the inferi or pole left kidney has migrated down to the distal left ureter which is slightly more dilated now. In addition, a 6 mm stone in the ureterovesical junction on the right is newly apparent and is associ ated with marginally worse right hydronephrosis. BLADDER: Unremarkable REPRODUCTIVE ORGANS: Hysterectomy GASTROINTESTINAL: Large second and third portion duodenal diverticuli are redemonstrated. No findings of bowel obstruction, perforation or acute inflammation. Scattered colonic diverticuli. The rectal v nazario is distended with fecal debris to a transverse diameter of 8.9 cm. The appendix is normal. MESENTERY/PERITONEUM/RETROPERITONEUM: Unremarkable VASCULAR: Scattered arterial calcifications. No abdominal aortic aneurysm. LYMPH NODES: No adenopathy OSSEOUS & SOFT TISSUES: Advanced left hip degenerative changes with probable tofi-rl-usfa contact an d subchondral cystic change. Generalized osteopenia with grade 1 anterolisthesis of L4 on L5. No acut e or aggressive appearing osseous lesions. IMPRESSION: Stones in both distal ureters are now evident that are contributing to worsening bilateral hydronephr osis and hydroureter, as described. Electronically signed by: Savi Freeman MD (02/18/2020 3:55 PM) [id number]
[2020-02-18 20:24] VITALS: BP 142/74
[2020-02-18] MEDS: traMADol 50 MG TABLET PO SCH (20:46)
[2020-02-18] MEDS: HEPARIN for SUB-Q USE 5,000 UNIT/ML VIAL. SQ SCH (20:47)
[2020-02-18] MEDS: PANTOPRAZOLE 40 MG TABLET. PO SCH (20:48)
[2020-02-18] MEDS: DOCUSATE SODIUM 100 MG CAPSULE PO SCH (20:48)
--- NOTE | 2020-02-18 23:14 | PN ---
DATE: 02/18/2020 SUBJECTIVE: The patient is resting, slightly propped up in bed, in no apparent distress. She is extremely demented, does not give any useful information, but denied any chest pain or shortness of breath. PHYSICAL EXAMINATION: GENERAL: When I examined her, she looked pale, no jaundice, cyanosis or thyromegaly. No jugular venous distention. No limb edema. VITAL SIGNS: Her heart rate was 79, blood pressure was 129/55, temperature 97.4, respiratory rate was 20, and oxygen saturation was 98%. HEAD EYES, EARS, NOSE AND THROAT: Showed normocephalic, atraumatic. NECK: Supple. HEART: Showed normal first and second heart sounds. No gallop or murmur. CHEST: Clear to auscultation. No crepitation or rhonchi. ABDOMEN: Distended, some tenderness in the suprapubic area. No guarding or rigidity. No organomegaly. All hernial orifice intact. Bowel sounds normal. NEUROLOGIC: She is demented without any obvious lateralizing sign. LABORATORY DATA: As of this morning, her serum sodium was down to 140, potassium 3.3, chloride 105, bicarbonate 22, anion gap of 13, BUN 93 and serum creatinine was 3.7, estimated GFR was 11.5, glucose 108, and calcium was 8.7. ASSESSMENT: 1. Acute on chronic kidney injury and chronic kidney disease with a baseline creatinine of around 2 mg/dL, hypothyroidism, gastroesophageal reflux disease, chronic constipation, and chronic normochromic normocytic anemia. PLAN: Obviously to continue with IV fluid. I switched her to D5 half normal at 125 mL per hour. I will arrange for her to have a CT scan of the abdomen and pelvis without contrast to rule out any abdominal pathology and we will decide on further management accordingly. She is obviously not a candidate for hemodialysis. KOMAL NERI MD DR: JUAN JOSE/tisha JOB#: [id number] / [id number]
[2020-02-18 23:59] VITALS: BP 131/48
[2020-02-19] MEDS: IV DEXTROSE 5 %-0.45 % NACL 1,000 ML IV SCH ×2 (04:05→16:46)
[2020-02-19] MEDS: LEVOTHYROXINE 100 MCG TABLET PO SCH (05:54)
[2020-02-19] MEDS: HEPARIN for SUB-Q USE 5,000 UNIT/ML VIAL. SQ SCH ×3 (05:55→21:37)
[2020-02-19 06:31] VITALS: BP 110/63
[2020-02-19 06:40] LABS: HEMATOCRIT 30.8 % (36.0-47.0); HEMOGLOBIN 10.2 g/dL (12.0-15.5); RED BLOOD COUNT 3.97 x10^6/uL (3.50-5.40); RED CELL DISTRIBUTION WIDTH 14.4 % (11.5-14.5); WHITE BLOOD COUNT 5.7 x10^3/uL (4.0-11.0)
[2020-02-19 06:51] LABS: CALCIUM 8.7 mg/dL (8.5-10.1); CREATININE 2.9 mg/dL (0.6-1.0); GFR 15.3
[2020-02-19 07:11] LABS: POTASSIUM 2.9 mmol/L (3.5-5.1)
[2020-02-19] MEDS: POLYETHYLENE GLYCOL 3350 17 GM PACKET. PO SCH (08:00)
[2020-02-19] MEDS ORDERED: POTASSIUM CHLORIDE 20 MEQ TABLET.ER. PO ONE ×3 (08:00→13:30)
[2020-02-19] MEDS: ASCORBIC ACID 500 MG TABLET PO SCH (08:00)
[2020-02-19] MEDS: DOCUSATE SODIUM 100 MG CAPSULE PO SCH ×2 (08:00→21:27)
[2020-02-19] MEDS: CETIRIZINE HCL 10 MG TABLET PO SCH (08:00)
[2020-02-19] MEDS: LACTOBACILLUS RHAMNOSUS GG 1 CAPSULE. PO SCH (08:00)
[2020-02-19] MEDS: MULTIVITAMIN with MINERAL TABLET. PO SCH (08:00)
[2020-02-19] MEDS: PANTOPRAZOLE 40 MG TABLET. PO SCH ×2 (08:00→21:27)
[2020-02-19] MEDS: traMADol 50 MG TABLET PO SCH (08:01)
[2020-02-19] MEDS: hydrOXYzine HCL 25 MG TABLET PO SCH (08:01)
[2020-02-19] MEDS: SODIUM BICARBONATE 650 MG TABLET PO SCH ×3 (08:04→21:27)
[2020-02-19 10:23] VITALS: BP 128/71
[2020-02-19 12:47] LABS: CALCIUM 8.3 mg/dL (8.5-10.1); CREATININE 2.9 mg/dL (0.6-1.0); GFR 15.3; POTASSIUM 3.2 mmol/L (3.5-5.1)
--- NOTE | 2020-02-19 13:07 | DISCH ---
DISCHARGE ORDERS DISCHARGE DATE: Feb 19, 2020 FINAL DIAGNOSIS acute on chronic hypercapnic respiratory failure acute on chronic diastolic chf atrial fibrillation with RVR] Morbid obesity and ITALO CONDITION AT DISCHARGE: Stable Code Status: DNR/DNI SNF STAY <30 DAYS: Yes POST DISCHARGE ORDERS: ACTIVITY ORDERS: No restrictions, Activity as tolerated DIET AFTER DISCHARGE: Cardiac WOUND/INCISION CARE: Change dressing TREATMENT/EQUIPMENT ORDERS: ADAPTIVE EQUIPMENT NEEDED: None DISCHARGE MEDICATIONS: Home Meds Active Scripts Levothyroxine Sodium (LEVOTHYROXINE SODIUM) 100 Mcg Tablet, 1 TAB PO DAILY for HYPOTHYROID for 30 Days, #30 TAB 5 Refills Prov:KOMAL NERI MD 12/29/18 Sodium Bicarbonate (SODIUM BICARBONATE) 650 Mg Tablet, 1 TAB PO TID for ACIDOSIS for 30 Days, #90 TAB 5 Refills Prov:KOMAL NERI MD 12/29/18 Reported Medications Lactobacillus Rhamnosus Gg (CULTURELLE) 1 Each Cap.sprink, 1 CAP PO DAILY for . for 30 Days, #30 CAP 0 Refills 02/18/20 Tramadol Hcl (TRAMADOL HCL) 50 Mg Tablet, 50 MG PO BID for PAIN, TAB 02/18/20 Omeprazole (OMEPRAZOLE) 20 Mg Capsule.dr, 1 CAP PO BID for GERD, #30 CAP 5 Refills 02/18/20 Levothyroxine Sodium (LEVOTHYROXINE SODIUM) 100 Mcg Tablet, 1 TAB PO DAILY for thyroid, #30 TAB 5 Refills 02/18/20 Furosemide (LASIX) 40 Mg Tablet, 1 TAB PO DAILY for . for 30 Days, #30 TAB 0 Refills 02/18/20 Hydroxyzine Hcl (HYDROXYZINE HCL) 25 Mg Tablet, 1 TAB PO TID for ., #30 TAB 02/18/20 Docusate Sodium (COLACE) 100 Mg Capsule, 1 CAP PO BID for constipation for 30 Days, #60 CAP 0 Refills 02/18/20 Loratadine (LORATADINE) 10 Mg Tab.rapdis, 1 TAB PO DAILY for allergy symptoms for 30 Days, #30 TAB 0 Refills 02/18/20 Acetaminophen (ACETAMINOPHEN) 325 Mg Tablet, 2 TAB PO PRN Q4-6HRS PRN for pain or fever for 24 Days, #100 TAB 0 Refills 02/18/20 Diphenhydramine Hcl/Zinc Acet (BENADRYL ITCH STOPPING CRM) 28.3 Gm Cream..g., 1 [place] TP PRN for irritation around nose for 5 Days, GM 0 Refills 12/26/18 Calcium Carbonate (TUMS ULTRA) 400 Mg Tab.chew, 400 MG PO PRN Q4HRS for gerd, TAB.CHEW 12/26/18 Menthol (Cough Drops) 7.6 Mg Lozenge, 1 TAB PO Q2HR for cough for 3 Days, #18 TAB 0 Refills 12/26/18 Polyethylene Glycol 3350 (MIRALAX) 17 Gm Powd.pack, 17 GM PO DAILY for constipation, PKT 12/26/18 Lactose-Reduced Food (Ensure Max Protein) 330 Ml Liquid, 330 ML PO PRN for weight loss, LIQUID 12/26/18 Multivits-Min/Iron/FA/Lutein (Centrum Silver Women Tablet) 1 Each Tablet, 1 EACH PO DAILY for supplement, TAB 12/26/18 Ascorbic Acid (VITAMIN C) 500 Mg Capsule.er, 1 CAP PO DAILY for supplement for 30 Days, #30 CAP 0 Refills 12/26/18 Discontinued Reported Medications Loratadine (LORATADINE) 10 Mg Tablet, 1 TAB PO DAILY for allergic rhinitis, #30 TAB 5 Refills 12/26/18 Tramadol Hcl (TRAMADOL HCL) 50 Mg Tablet, 50 MG PO PRN Q12HR PRN for PAIN, TAB 12/26/18 Discontinued Scripts Cefdinir (CEFDINIR) 300 Mg Capsule, 300 MG PO DAILY for UTI for 5 Days, #5 CAP Prov:KOMAL NERI MD 12/29/18 KOMAL NERI MD Feb 19, 2020 13:07
--- NOTE | 2020-02-19 14:52 | PN ---
DATE: 02/19/2020 SUBJECTIVE: The patient is an 89-year-old female patient who was admitted with acute on chronic kidney injury, advanced dementia and severe self-care deficit. She apparently was at [facility] [place] and the staff there was unable to take care of her and was given a 30-day notice. Her son was actively looking for a retirement facility and apparently our health care social worker has managed to get her at [facility]. She will be discharged there on 02/21/2019. Of note, we did actually a CT scan of the abdomen and pelvis, which showed that the patient has stones in both distal ureters with now evidence that are contributing to worsening bilateral hydronephrosis and hydroureters. Her serum potassium was low and we did replenish it this morning and in fact, this afternoon, her potassium is up to 3.2 from 2.9. Her serum creatinine is steadily improving slowly from 3.9 to 2.9. PHYSICAL EXAMINATION: GENERAL: When I saw her this afternoon, she was somewhat pale, but no jaundice, cyanosis or thyromegaly. No jugular venous distention. No lower limb edema. VITAL SIGNS: Her heart rate was 84, blood pressure was 128/71, temperature was 98.7, respiratory rate was 20, and oxygen saturation was 98% on room air. HEAD, EYES, EARS, NOSE AND THROAT: Showed normocephalic, atraumatic. NECK: Supple. HEART: Showed normal first and second heart sounds. No gallop, rub or murmur. CHEST: Clear to auscultation. No crepitation or rhonchi. ABDOMEN: Distended, soft, nontender. NEUROLOGIC: She is very lethargic, but arousable. She does open her eyes and mumbles some words and go back to sleep. All her cranial nerves intact. She moves upper extremities to much good extent than lower extremities. She is mostly bedbound, chair bound. Her intake over the last 24 hours and output was incompletely recorded. LABORATORY DATA: Her white cell count this morning was 5700, hemoglobin 10, hematocrit 30, MCV 78 and platelet count 266,000. Most recent serum sodium 138, potassium 3.2, chloride 105, bicarbonate 22, anion gap of 11, BUN 62, creatinine 2.9, estimated GFR was 15 mL per minute. Her glucose was 153, calcium was 8.3. Urinalysis showed the urine was with a large amount of leukocyte esterase, 20-40 rbc's, more than 40 wbc's, and many bacteria. Her urine culture is still pending at the time of this dictation. ASSESSMENT: 1. Acute on chronic kidney injury. 2. Chronic kidney disease. 3. Bilateral ureteral stones with bilateral hydronephrosis. 4. Hypothyroidism. 5. Gastroesophageal reflux disease. 6. Chronic constipation. 7. Chronic normochromic normocytic anemia. PLAN: To continue with IV fluid, continue to replenish her potassium. I will contact her son to inform him about the finding of stones in his kidneys, although I personally do not think that putting stents in her kidneys is going to improve her mental status. KOMAL NERI MD DR: JUAN JOSE/tisha JOB#: [id number] / [id number]
[2020-02-19 15:04] VITALS: BP 130/54
[2020-02-19] MEDS: POTASSIUM CHLORIDE 20 MEQ TABLET.ER. PO SCH ×2 (17:39→21:27)
[2020-02-19 18:31] VITALS: BP 133/59
[2020-02-19] MEDS: ACETAMINOPHEN 325 MG TABLET PO PRN (21:27)
[2020-02-19 23:26] VITALS: BP 113/45
[2020-02-20] MEDS: IV DEXTROSE 5 %-0.45 % NACL 1,000 ML IV SCH ×2 (03:10→08:09)
[2020-02-20 05:50] VITALS: BP 134/63
[2020-02-20] MEDS: LEVOTHYROXINE 100 MCG TABLET PO SCH (05:53)
[2020-02-20] MEDS: MULTIVITAMIN with MINERAL TABLET. PO SCH (07:55)
[2020-02-20] MEDS: LACTOBACILLUS RHAMNOSUS GG 1 CAPSULE. PO SCH (07:55)
[2020-02-20] MEDS: ASCORBIC ACID 500 MG TABLET PO SCH (07:55)
[2020-02-20] MEDS: PANTOPRAZOLE 40 MG TABLET. PO SCH ×2 (07:55→21:38)
[2020-02-20] MEDS: CETIRIZINE HCL 10 MG TABLET PO SCH (07:55)
[2020-02-20] MEDS: DOCUSATE SODIUM 100 MG CAPSULE PO SCH ×2 (07:55→21:00)
[2020-02-20] MEDS: POTASSIUM CHLORIDE 20 MEQ TABLET.ER. PO SCH ×3 (07:56→21:38)
[2020-02-20] MEDS: POLYETHYLENE GLYCOL 3350 17 GM PACKET. PO SCH (07:56)
[2020-02-20] MEDS: HEPARIN for SUB-Q USE 5,000 UNIT/ML VIAL. SQ SCH ×3 (07:57→21:39)
[2020-02-20] MEDS: SODIUM BICARBONATE 650 MG TABLET PO SCH ×3 (07:58→21:39)
[2020-02-20 11:22] VITALS: BP 128/78
--- NOTE | 2020-02-20 12:46 | PN ---
DATE: 02/20/2020 SUBJECTIVE: The patient is resting, slightly propped up in her recliner, in no apparent distress. She is awake, alert. On questioning her, denied any complaint. Nursing staff did not voice any concern. PHYSICAL EXAMINATION: GENERAL: When I examined her, she looked pale, but no jaundice, cyanosis or thyromegaly. No jugular venous distention or limb edema. VITAL SIGNS: Her heart rate was 89, blood pressure was 128/78, temperature was 98.2, respiratory rate 20, and oxygen saturation was 96% on room air. HEAD, EYES, EARS, NOSE AND THROAT: Showed normocephalic, atraumatic. NECK: Supple. HEART: Normal first and second heart sounds. No gallop or murmur. CHEST: Clear to auscultation. No crepitation or rhonchi. ABDOMEN: Distended, soft, nontender. NEUROLOGIC: She is definitely more awake, alert, responding appropriately. All cranial nerves intact. She moves upper extremities to much good extent than lower extremities. She is mostly bedbound, chair bound. Her intake over the last 24 hours was 720, no output was recorded. LABORATORY DATA: As of yesterday showed a serum sodium 138, potassium 2.2, chloride 105, bicarbonate 22, anion gap of 11, BUN 62, creatinine was 2.9, estimated GFR was 15 mL per minute. Her glucose was 153, calcium was 8.3. Her white cell count was 5700, hemoglobin 10, hematocrit 30, MCV 78 and platelet count 266,000. Her urine culture has grown 3 or more organisms, isolated, results consistent with colonization and/or contamination. PLAN: To continue with IV fluid, continue with IV antibiotic. I will repeat her lab work and decide on further management accordingly. KOMAL NERI MD DR: JUAN JOSE/tisha JOB#: [id number] / [id number]
[2020-02-20 12:51] LABS: CALCIUM 8.7 mg/dL (8.5-10.1); CREATININE 2.4 mg/dL (0.6-1.0); POTASSIUM 4.3 mmol/L (3.5-5.1)
[2020-02-20 15:41] VITALS: BP 156/67
[2020-02-20 19:00] VITALS: BP 144/53
[2020-02-20] MEDS: ACETAMINOPHEN 325 MG TABLET PO PRN (21:38)
[2020-02-21] MEDS: LEVOTHYROXINE 100 MCG TABLET PO SCH (05:52)
[2020-02-21] MEDS: HEPARIN for SUB-Q USE 5,000 UNIT/ML VIAL. SQ SCH ×3 (05:54→19:58)
[2020-02-21 06:05] VITALS: BP 127/66
[2020-02-21] MEDS: DOCUSATE SODIUM 100 MG CAPSULE PO SCH ×2 (07:17→19:58)
[2020-02-21] MEDS: POLYETHYLENE GLYCOL 3350 17 GM PACKET. PO SCH (07:18)
[2020-02-21] MEDS: CETIRIZINE HCL 10 MG TABLET PO SCH (07:55)
[2020-02-21] MEDS: MULTIVITAMIN with MINERAL TABLET. PO SCH (07:55)
[2020-02-21] MEDS: PANTOPRAZOLE 40 MG TABLET. PO SCH ×2 (07:55→19:58)
[2020-02-21] MEDS: POTASSIUM CHLORIDE 20 MEQ TABLET.ER. PO SCH (07:55)
[2020-02-21] MEDS: ASCORBIC ACID 500 MG TABLET PO SCH (07:55)
[2020-02-21] MEDS: LACTOBACILLUS RHAMNOSUS GG 1 CAPSULE. PO SCH (07:55)
[2020-02-21] MEDS: SODIUM BICARBONATE 650 MG TABLET PO SCH ×3 (07:57→19:58)
[2020-02-21 10:25] VITALS: BP 125/65
--- NOTE | 2020-02-21 14:28 | PN ---
DATE: 02/21/2020 SUBJECTIVE: The patient is sitting up in her recliner, eating her lunch. On questioning her, denied any complaint. The nursing staff did not voice any concern and stated that she is actually doing very well. She is drinking very well; however, her food intake is not as great. PHYSICAL EXAMINATION: GENERAL: When I examined her, she was pale, but no jaundice or cyanosis. No lymphadenopathy, no thyromegaly. VITAL SIGNS: Her heart rate was 90, blood pressure was 125/65, temperature was 98.6, respiratory rate was 20, and oxygen saturation was 97% on room air. HEAD, EYES, EARS, NOSE AND THROAT: Showed normocephalic, atraumatic. NECK: Supple. HEART: Normal first and second heart sounds. No gallop or murmur. CHEST: Clear to auscultation. No crepitation or rhonchi. ABDOMEN: Distended, soft, nontender. NEUROLOGIC: She is demented, but without any obvious lateralizing sign. All her cranial nerves are intact. She moves upper extremities without difficulty. She is mostly bed bound, wheelchair bound. Her intake was 770, no output was recorded. LABORATORY DATA: As of yesterday, her serum sodium was 142, potassium 4.3, chloride 111, bicarbonate 19, anion gap of 12, BUN of 50, creatinine 2.4, estimated GFR was 19 mL per minute, her glucose 150, calcium was 8.7. Her most recent white cell count was 5700, hemoglobin 10, hematocrit 30, MCV 78 and platelet count 266,000. ASSESSMENT: 1. Acute on chronic kidney injury, improving. Her creatinine came down from 3.9 to 2.4. 2. Chronic kidney disease. 3. Bilateral ureteral stones with bilateral hydronephrosis. 4. Hypothyroidism. 5. Gastroesophageal reflux disease. 6. Chronic constipation. 7. Chronic microcytic hypochromic anemia. PLAN: To continue with the levothyroxine. Continue DVT prophylaxis. Continue with Protonix. I spoke with her son regarding the finding of kidney stones and obviously, he wants to discuss with his sisters and brothers regarding whether she is a candidate for perhaps cystoscopy and ureteral stent placement. I will repeat her lab works tomorrow and hopefully she can be discharged to a skilled facility tomorrow as she apparently was accepted at [facility] to be admitted to Memory Care Unit. KOMAL NERI MD DR: JUAN JOSE/tisha JOB#: [id number] / [id number]
[2020-02-21 14:47] VITALS: BP 113/54
[2020-02-21 19:43] VITALS: BP 111/58
[2020-02-22] MEDS: LEVOTHYROXINE 100 MCG TABLET PO SCH (05:16)
[2020-02-22] MEDS: HEPARIN for SUB-Q USE 5,000 UNIT/ML VIAL. SQ SCH ×2 (05:22→13:23)
[2020-02-22 06:20] VITALS: BP 107/60
[2020-02-22 06:30] LABS: HEMATOCRIT 33.4 % (36.0-47.0); RED BLOOD COUNT 4.32 x10^6/uL (3.50-5.40); RED CELL DISTRIBUTION WIDTH 14.7 % (11.5-14.5); WHITE BLOOD COUNT 7.6 x10^3/uL (4.0-11.0)
[2020-02-22 06:46] LABS: CALCIUM 8.8 mg/dL (8.5-10.1); CREATININE 2.4 mg/dL (0.6-1.0); POTASSIUM 4.3 mmol/L (3.5-5.1)
[2020-02-22] MEDS: CETIRIZINE HCL 10 MG TABLET PO SCH (08:08)
[2020-02-22] MEDS: LACTOBACILLUS RHAMNOSUS GG 1 CAPSULE. PO SCH (08:08)
[2020-02-22] MEDS: ASCORBIC ACID 500 MG TABLET PO SCH (08:08)
[2020-02-22] MEDS: PANTOPRAZOLE 40 MG TABLET. PO SCH (08:08)
[2020-02-22] MEDS: SODIUM BICARBONATE 650 MG TABLET PO SCH ×2 (08:09→13:23)
[2020-02-22] MEDS: MULTIVITAMIN with MINERAL TABLET. PO SCH (08:09)
[2020-02-22] MEDS: POLYETHYLENE GLYCOL 3350 17 GM PACKET. PO SCH (08:42)
[2020-02-22] MEDS: DOCUSATE SODIUM 100 MG CAPSULE PO SCH (08:42)
[2020-02-22 10:18] VITALS: BP 109/68
--- NOTE | 2020-02-22 12:56 | PN ---
DATE: 02/22/2020 SUBJECTIVE: The patient is resting, slightly propped up in bed, no apparent distress. She is awake, alert, eating lunch comfortably. On questioning her, denied any complaint. The nursing staff did not voice any concerns that she has an uneventful night. PHYSICAL EXAMINATION: GENERAL: When I examined her, she was pale, but no jaundice, cyanosis or thyromegaly. No jugular venous distention. No lower limb edema. VITAL SIGNS: Her heart rate was 95, blood pressure was 109/68, temperature was 98.5, respiratory rate was 18 and oxygen saturation was 99% on room air. HEAD, EYES, EARS, NOSE AND THROAT: Normocephalic, atraumatic. NECK: Supple. HEART: Normal first and second heart sounds. No gallop or murmur. CHEST: Clear to auscultation. No crepitation or rhonchi. ABDOMEN: Distended, soft, nontender. NEUROLOGIC: She is demented, but without any obvious lateralizing sign. Her cranial nerves are intact. She moves upper extremities to much great extent than lower extremities. She is mostly bedbound, chair bound. Her intake was 1320 and, no output was recorded. However, the patient is incontinent. LABORATORY DATA: As of this morning showed a serum sodium 142, potassium 4.3, chloride 109, bicarbonate 23, anion gap of 10, BUN 31, creatinine 2.4, estimated GFR was 19 mL per minute. Her glucose 109. Calcium was 8.8. White cell count was 7600, hemoglobin 11, hematocrit 33, MCV 77, and platelet count 282,000. ASSESSMENT: 1. Acute on chronic kidney injury, improving. Her creatinine has stabilized around 2.4 mg/dL. 2. Chronic kidney injury. 3. Bilateral ureteral stones with bilateral hydronephrosis and hydroureters. 4. Hypothyroidism. 5. Gastroesophageal reflux disease. 6. Chronic constipation. 7. Chronic microcytic hypochromic anemia. 8. I spoke obviously with her son who basically wanted the stones to be taken care of. Unfortunately, she cannot be taken as an outpatient for cystoscopy. There are no beds or urologist at [facility]. I spoke with the transfer center of [facility] and they have no beds available. I spoke with Dr. Andrea as urologist at [facility] recommended doing bilateral percutaneous nephrostomy tubes. Dr. Andrea did not recommend that unless that is only the last resource and the family accept the higher risk of the procedure and he thinks that doing cystoscopy and bilateral stent deployment would be the better option for her, that is less traumatic and less invasive given her age and comorbidities. He recommended repeating the CT scan first and once we have the CT scan results, we will talk with her family regarding the option of percutaneous nephrostomy tube placement. KOMAL NERI MD DR: JUAN JOSE/tisha JOB#: [id number] / [id number]
[2020-02-22 15:04] VITALS: BP 113/50
--- NOTE | 2020-02-22 15:40 | RAD ---
CT ABDOMEN+PELVIS WO INDICATION: Reason: follow up on bilateral ureteric stones / Spl. Instructions: / History: EXAM: Noncontrast CT of the abdomen and pelvis. Coronal and sagittal reformatted images were perform ed. PQRS compliance statement: One or more of the following individualized dose reduction techniques were utilized for this examinat ion: 1. Automated exposure control 2. Adjustment of the mA and/or kV according to patient size 3. Use of iterative reconstruction technique COMPARISON: 02/18/2020 FINDINGS: No free air, free fluid, or fluid collection. Lower chest: The visualized lower lungs are aerated. No pleural or pericardial effusion. Small hiatal hernia. ABDOMEN: Liver: The noncontrast liver is homogeneous in attenuation. Gallbladder and biliary: Normal gallbladder without radiopaque stone. Normal caliber bile ducts. Spleen: Normal spleen. Pancreas: The noncontrast pancreas is homogeneous in attenuation without peripancreatic inflammatory changes. Adrenal glands: Normal adrenal glands. Kidneys and ureters: Right hydroureteronephrosis has resolved, and the obstructing calculus at the ri ght ureterovesicular junction is no longer visualized. Several stones in the right renal collecting s ystem, including a 5 mm calculus just proximal to the ureteropelvic junction. Stable moderate to kristi re left hydroureteronephrosis with a 6 x 5 mm calculus in the distal ureter. GI tract: Debris in the stomach. Normal caliber small bowel and colon. Colonic diverticulosis. Disten tion of the rectum with stool and gas. Vascular structures: Diffuse aortoiliac atherosclerotic disease Lymph nodes: No lymphadenopathy in the abdomen or pelvis. PELVIS: Genitourinary system: Urinary bladder is decompressed. Hysterectomy. SKELETAL STRUCTURES AND SOFT TISSUES: Advanced degenerative changes of the spine. Grade 1 anterolisth esis L4-5 due to facet arthropathy. Severe left hip osteoarthritis with subchondral sclerosis, cystic change, and femoral head remodeling. IMPRESSION: 1. Right hydroureteronephrosis has resolved and right ureterovesicular junction calculus is no longer visualized. Multiple additional nonobstructive calculi within the right renal collecting system. 2. Persistent moderate to severe left hydroureteronephrosis with a 6 mm calculus in the distal ureter . Electronically signed by: Mil Burgos MD (02/22/2020 3:38 PM) [facility]
--- NOTE | 2020-02-22 18:47 | DS ---
DATE OF DISCHARGE: 02/22/2020 HOSPITAL COURSE: The patient is an 89-year-old female patient who was residing at [facility], who was admitted with worsening generalized weakness and fatigue. She denied any pain. She is known to have chronic renal insufficiency, but is not on dialysis. The patient had no fever or COVID exposure. The patient is not able to answer if she is eating or drinking enough. I spoke with the nursing staff at the assisted living facility. The patient basically has advanced dementia. She is a 2-person assist. They have already given 30-day notice to her son. They are unable to meet her needs and basically she was admitted to our hospital and found that her BUN was high at 99, creatinine 3.9. We started her on IV fluid and her kidney function has gradually improved. She had had a CT scan of the abdomen and pelvis done on 02/18/2020, which showed the patient has stones in both distal ureters, are now evident and are contributing to worsening bilateral hydronephrosis and hydroureter; and after informing the family with the finding, they wanted the stone to be treated before she can go to [facility] and we did actually repeat her CT scan today of the abdomen and pelvis without contrast, which basically showed that her right hydroureteronephrosis has resolved and right ureterovesicular junction calculus is no longer visualized. Multiple additional nonobstructive calculi within the right renal collecting system. She has resistant [id number] left hydroureteronephrosis with a 6 mm calculus in the distal ureter. The patient was accepted by Dr. Gresham at [facility], his number is #[phone]. The patient will be transferred there to consult the urologist and for cystoscopy and a ureteral stent placement and perhaps stone retrieval. PHYSICAL EXAMINATION: GENERAL: When I saw her today, she looked well and was clearly in no apparent respiratory distress. She is pale, but no jaundice, cyanosis or thyromegaly. No jugular venous distention or limb edema. VITAL SIGNS: Her heart rate was 79, blood pressure 113/50, temperature was 97.4, respiratory rate 20, and oxygen saturation was 100% on room air. HEAD, EYES, EARS, NOSE, AND THROAT: Showed normocephalic, atraumatic. NECK: Supple. HEART: Showed normal first and second heart sounds with no gallop, rub, or murmur. CHEST: Clear to auscultation. No crepitation or rhonchi. ABDOMEN: Distended, soft, and nontender. NEUROLOGIC: She is demented, but without any obvious lateralizing sign. All cranial nerves intact. She moves upper extremities to much good extent than lower extremities. Her intake was 700, no output was recorded. LABORATORY DATA: This morning showed a white cell count 7600, hemoglobin 11, hematocrit 33, MCV 77, and platelet count 282,000. Her serum sodium was 142, potassium 4.3, chloride 109, bicarbonate 23, anion gap of 10, BUN 31, creatinine 2.4, and estimated GFR was 19 mL per minute. Her glucose was 109. Calcium was 8.8. Her urinalysis was unremarkable. Urine culture was negative. DISCHARGE MEDICATIONS: The patient will be transferred to [facility] with multivitamin 1 tablet once a day, cetirizine 10 mg once a day, ascorbic acid 500 mg once a day, polyethylene glycol 17 grams daily, lactobacillus rhamnosus 1 capsule daily, levothyroxine sodium 100 mcg once a day, heparin 5000 units subcutaneously every 8 hours, Protonix 40 mg twice a day, Colace 100 mg twice a day, throat lozenges 1 every 2 hours as needed, sodium bicarbonate 650 mg 3 times a day, acetaminophen 650 mg every 4 hours as needed. FINAL DISCHARGE DIAGNOSES: 1. Acute on chronic kidney injury, improving. Her creatinine has stabilized around 2.4 mg/dL. 2. Chronic kidney disease. 3. Bilateral ureteral stones with bilateral hydronephrosis. The right hydroureteronephrosis has resolved. The left continues with a 6 mm obstructing stone in the left distal end of the left ureter. 4. Hypothyroidism. 5. Gastroesophageal reflux disease. 6. Chronic constipation. 7. Chronic microcytic hypochromic anemia. KOMAL NERI MD DR: JUAN JOSE/tisha JOB#: [id number] / [id number]
[2020-02-22 20:06] VITALS: BP 130/79
== END 2020-02-22 22:03 | disposition short-term general hospital (02) | DRG 683 ==
LOC: ER 17:32 → OBSVTOIN 20:30 → INTOOBSV 20:30 → 1 SOUTH 20:30
PROVIDERS: ADMIT Internal Medicine; ATTEND Internal Medicine
DX: N17.0 Acute kidney failure with tubular necrosis (principal); J84.9 Interstitial pulmonary disease, unspecified; N13.6 Pyonephrosis; D50.9 Iron deficiency anemia, unspecified; E03.9 Hypothyroidism, unspecified; F02.80 Dementia in other diseases classified elsewhere, unspecified severity, without behavioral disturbance, psychotic disturbance, mood disturbance, and anxiety; G30.9 Alzheimer's disease, unspecified; K21.9 Gastro-esophageal reflux disease without esophagitis; K59.09 Other constipation; M16.12 Unilateral primary osteoarthritis, left hip; N18.9 Chronic kidney disease, unspecified; Z66 Do not resuscitate; Z87.891 Personal history of nicotine dependence; Z90.710 Acquired absence of both cervix and uterus; Z98.41 Cataract extraction status, right eye; Z98.42 Cataract extraction status, left eye; Z99.3 Dependence on wheelchair; E11.22 Type 2 diabetes mellitus with diabetic chronic kidney disease; I12.9 Hypertensive chronic kidney disease with stage 1 through stage 4 chronic kidney disease, or unspecified chronic kidney disease; Z82.49 Family history of ischemic heart disease and other diseases of the circulatory system
CPT/HCPCS: 36415; 71045; 74176; 80048; 80053; 81001; 82803; 83605; 83735; 83880; 84100; 84484; 85025; 85027; 87086; 93005; 96360; G0378; G0379; J0696; J1644; P9612; 99285-25; J7030